=== PATIENT | male | born 1990 | race Caucasian/White ===

== ENCOUNTER 2017-02-23 12:14 | Emergency (ER) | payer OTHER ==
--- NOTE | 2017-02-23 13:08 | EDPHY ---
H & P Stated Complaint: M-1 hold, anxiety Time Seen by Provider: 02/23/17 12:39 HPI/ROS: HISTORY OF PRESENT ILLNESS: This is a 26-year-old male brought in by his therapist Eleazar Ramirez for M1 hold psychiatric evaluation. [facility] stated that patient had taken over 1000 mg of DXM on Sunday, at that point time his behavior became erratic. Patient then seen by therapy on Sunday was placed on Haldol and other antipsychotic drugs patient's behavior became worse erratic behavior increased. In today worsening melyssa symptoms unable to hold a single conversation goes on a tangent. Patient jumping from several different conversations he states he just feels like something is wrong , he definitely reports no suicidal ideation or homicidal ideation REVIEW OF SYSTEMS: Constitutional: No fever Eyes: No vision changes ENT: No sore throat Respiratory: No shortness of breath Cardiac: No chest pain Gastrointestinal: No nausea vomiting Musculoskeletal: Body pain Skin: No rash Neurological: No headache Source: Patient, Family, Old records, Other ([facility]) - Personal History Current Tetanus Diphtheria and Acellular Pertussis (TDAP): Unsure - Medical/Surgical History Hx Asthma: No Hx Chronic Respiratory Disease: No Hx Diabetes: No Hx Cardiac Disease: No Hx Renal Disease: No Hx Cirrhosis: No Hx Alcoholism: No Hx HIV/AIDS: No Hx Splenectomy or Spleen Trauma: No Other PMH: ADHD, anxiety, OCD, Dystonia - Social History Smoking Status: Current every day smoker - Physical Exam Exam: General Appearance: Alert, no distress. Eyes: Pupils equal and round no pallor or injection. ENT, Mouth: Mucous membranes moist. Respiratory: There are no retractions, lungs are clear to auscultation. Cardiovascular: Regular rate and rhythm. Gastrointestinal: Abdomen is soft and nontender, no masses, bowel sounds normal. Neurological: No focal deficits, word salad, unable to have a focus conversation Skin: Warm and dry, no rashes. Musculoskeletal: Neck is supple nontender. Full range of motion Extremities: symmetrical, full range of motion. Psychiatric: Patient is oriented X 3, agitated not combative. Constitutional: Initial Vital Signs Temperature (C) 36.1 C 02/23/17 12:16 Heart Rate 125 H 02/23/17 12:16 Respiratory Rate 20 02/23/17 12:16 Blood Pressure 178/105 H 02/23/17 12:16 O2 Sat (%) 95 02/23/17 12:16 O2 Delivery Mode Room Air Allergies/Adverse Reactions: Penicillins Allergy (Verified 02/10/16 14:58) Home Medications: Medication Instructions Recorded CLONAZEPAM 02/10/16 Haldol 02/10/16 Remeron 02/10/16 Venlafaxine 25MG (RX) 02/10/16 LORazepam [Ativan 2 mg tab] 2 mg PO TID #24 tablet 02/23/17 Medical Decision Making ED Course/Re-evaluation: U tox, CBC, Chem 7, patient on an M1 hold. Ativan given 1400: Patient medically cleared for EPS 1615: Patient reports feeling agitated 2 mg PO Ativan ordered 1630: EPS with patient at this time for evaluation 1800: Spoke with EPS (Sujatha), after their evaluation they feel safe patient will be okay to go home with mom. We also discussed sending a prescription of Ativan, patient to not take of the antipsychotic medications also discussed with patient not to be doing drugs. 1820: Mother agrees with plan. Discharge home---> stable, discussed discharge instructions Differential Diagnosis: Differential diagnosis considered but not limited to suicide ideation, drug intoxication and homicidal ideation - Data Points Laboratory Results: Laboratory Results 02/23/17 12:35 02/23/17 12:35 02/23/17 02/23/17 02/23/17 12:35 12:35 12:35 WBC 9.03 10^3/uL 10^3/uL (3.80-9.50) RBC 4.85 10^6/uL 10^6/uL (4.40-6.38) Hgb 15.9 g/dL g/dL (13.7-17.5) Hct 42.9 % % (40.0-51.0) MCV 88.5 fL fL (81.5-99.8) MCH 32.8 pg pg (27.9-34.1) MCHC 37.1 g/dL H g/dL (32.4-36.7) RDW 11.8 % % (11.5-15.2) Plt Count 346 10^3/uL 10^3/uL (150-400) MPV 10.4 fL fL (8.7-11.7) Neut % (Auto) 62.6 % % (39.3-74.2) Lymph % (Auto) 26.8 % % (15.0-45.0) [place] % (Auto) 9.2 % % (4.5-13.0) Eos % (Auto) 0.8 % % (0.6-7.6) Baso % (Auto) 0.3 % % (0.3-1.7) Nucleat RBC Rel Count 0.0 % % (0.0-0.2) Absolute Neuts (auto) 5.65 10^3/uL 10^3/uL (1.70-6.50) Absolute Lymphs (auto) 2.42 10^3/uL 10^3/uL (1.00-3.00) Absolute Monos (auto) 0.83 10^3/uL H 10^3/uL (0.30-0.80) Absolute Eos (auto) 0.07 10^3/uL 10^3/uL (0.03-0.40) Absolute Basos (auto) 0.03 10^3/uL 10^3/uL (0.02-0.10) Absolute Nucleated RBC 0.00 10^3/uL 10^3/uL (0-0.01) Immature Gran % 0.3 % % (0.0-1.1) Immature Gran # 0.03 10^3/uL 10^3/uL (0.00-0.10) Sodium 137 mEq/L mEq/L (134-144) Potassium 3.4 mEq/L L mEq/L (3.5-5.2) Chloride 100 mEq/L mEq/L (97-110) Carbon Dioxide 26 mEq/l mEq/l (22-31) Anion Gap 11 mEq/L mEq/L (8-16) BUN 10 mg/dL mg/dL (7-23) Creatinine 0.7 mg/dL mg/dL (0.7-1.3) Estimated GFR > 60 Glucose 103 mg/dL H mg/dL (70-100) Calcium 9.4 mg/dL mg/dL (8.5-10.4) Urine Opiates Screen NEGATIVE (NEGATIVE) Urine Barbiturates NEGATIVE (NEGATIVE) Ur Phencyclidine Scrn NEGATIVE (NEGATIVE) Ur Amphetamine Screen NEGATIVE (NEGATIVE) U Benzodiazepines Scrn NON-NEGATIVE H (NEGATIVE) Urine Cocaine Screen NEGATIVE (NEGATIVE) U Marijuana (THC) Screen NEGATIVE (NEGATIVE) Ethyl Alcohol < 10 mg/dL mg/dL (0-10) Medications Given: Discontinued Medications Lorazepam (Ativan) 1 mg PO EDNOW ONE Stop: 02/23/17 13:23 Last Admin: 02/23/17 13:28 Dose: 1 mg Lorazepam (Ativan) 1 mg PO EDNOW ONE Stop: 02/23/17 15:27 Last Admin: 02/23/17 15:27 Dose: 1 mg Lorazepam (Ativan) 2 mg PO EDNOW ONE Stop: 02/23/17 16:21 Last Admin: 02/23/17 16:20 Dose: 2 mg Departure - Departure Disposition: Home, Routine, Self-Care Clinical Impression: Bipolar disorder with severe melyssa Condition: Good Instructions: Lorazepam (By mouth), Bipolar Disorder (ED) Additional Instructions: 1. Patient has been evaluated by EPS, they feel strongly patient is safe to go home with mother 2. You need to follow-up on Sunday or Sunday with [facility] Joel Ramirez 3. Ativan a prescription of Ativan has been given. We recommend you not using any other medication until he has a re-evaluated by [facility] Referrals: FAHAD SCHULZ [Other] - As per Instructions Prescriptions: LORazepam [Ativan 2 mg tab] 2 mg PO TID #24 tablet
[2017-02-23 13:14] LABS: % IMMATURE GRANULYOCYTES 0.3 % (0.0-1.1); ABSOLUTE IMMATURE GRANULOCYTES 0.03 10^3/uL (0.00-0.10); ADD DIFF? NO; ADD MORPH? NO; ADD SCAN? NO; ATYPICAL LYMPHOCYTE FLAG 0 (0-99); FRAGMENT RBC FLAG 0 (0-99); HEMATOCRIT 42.9 % (40.0-51.0); HEMOGLOBIN 15.9 g/dL (13.7-17.5); LEFT SHIFT FLG 0 (0-99); LIPEMIA HEMOLYSIS FLAG 90 (0-99); MEAN CELL HEMOGLOBIN 32.8 pg (27.9-34.1); MEAN CELL HEMOGLOBIN CONCENTR. 37.1 g/dL (32.4-36.7); MEAN CELL VOLUME 88.5 fL (81.5-99.8); MEAN PLATELET VOLUME 10.4 fL (8.7-11.7); PLATELET CLUMPS FLAG 0 (0-99); PLATELET COUNT 346 10^3/uL (150-400); RED BLOOD CELL COUNT 4.85 10^6/uL (4.40-6.38); RED CELL DISTRIBUTION WIDTH 11.8 % (11.5-15.2)
[2017-02-23] MEDS ORDERED: LORazepam 1 MG TAB PO ONE ×3 (13:22→16:20)
[2017-02-23 13:24] LABS: ANION GAP 11 mEq/L (8-16); CALCIUM 9.4 mg/dL (8.5-10.4); CARBON DIOXIDE 26 mEq/l (22-31); CHLORIDE 100 mEq/L (97-110); CREATININE 0.7 mg/dL (0.7-1.3); ETHANOL SERUM < 10 mg/dL (0-10); GLOMERULAR FILTRATION RATE > 60; GLUCOSE 103 mg/dL (70-100); POTASSIUM 3.4 mEq/L (3.5-5.2); SODIUM 137 mEq/L (134-144)
[2017-02-23] MEDS ORDERED: LORazepam 1 MG TAB ONE (15:53)
[2017-02-23 17:38] VITALS: TEMP 97.9
[2017-02-23] MEDS ORDERED: LORAZEPAM 1 MG PREPACK#4 BTL TAKEHOME ONE (18:15)
[2017-02-23 18:45] VITALS: BP 130/88; PULSE 90; RESP 16; O2SAT 94
== END 2017-02-23 18:42 | disposition home or self-care (01) ==
DX: F31.13 Bipolar disorder, current episode manic without psychotic features, severe (principal); F17.200 Nicotine dependence, unspecified, uncomplicated
CPT/HCPCS: 80305; G0480

== ENCOUNTER 2017-03-05 00:43 | Emergency (ER) | payer OTHER ==
[2017-03-05 00:56] VITALS: RESP 18; O2SAT 96
--- NOTE | 2017-03-05 01:17 | EDPHY ---
H & P Stated Complaint: unstable on current psych meds , denies si hi Time Seen by Provider: 03/05/17 01:00 HPI/ROS: Chief Complaint: Abnormal behavior, psychiatric emergency HPI: 26-year-old male with a history of attention deficit hyperactivity disorder generalized anxiety, major depression and OCD being brought in by his parents because he was telling his mom about the names he has for demons and wanted to "invoke" the demons. Patient had mentioned that the demands have been known to kill people. This concerned mom about the patient's safety. He was recently seen and evaluated here and had his medications changed. 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 He denies use of any substances for the last 2 weeks. He is also complaining of pain all over but does not currently take any medications. Mom believes that these are statements seeking other medications. She is here tonight with concerns about his safety state was that he may and questions regarding his medication and there dosages. ROS: 10 point Review of Systems is negative except as noted in the HPI. PMH: Attention deficit hyperactivity disorder, generalized anxiety disorder, major depression, OCD, insomnia Social History: No smoking, no alcohol, no recreational drug use Family History: non-contributory Physical Exam: Gen: Awake, Alert, No Distress HEENT: Nose: no rhinorrhea Eyes: PERRLA, EOMI Mouth: Moist mucosa Neck: Supple, no JVD Chest: nontender, lungs clear to auscultation Heart: S1, S2 normal, no murmur Abd: Soft, non-tender, no guarding Back: no CVA tenderness, no midline tenderness Ext: no edema, non-tender Skin: no rash Neuro: CN II-XII intact, Sensation grossly intact, Strength 5/5 in bilateral upper and lower extremities - Personal History Current Tetanus/Diphtheria Vaccine: Yes Current Tetanus Diphtheria and Acellular Pertussis (TDAP): Yes - Medical/Surgical History Hx Asthma: No Hx Chronic Respiratory Disease: No Hx Diabetes: No Hx Cardiac Disease: No Hx Renal Disease: No Hx Cirrhosis: No Hx Alcoholism: No Hx HIV/AIDS: No Hx Splenectomy or Spleen Trauma: No Other PMH: ADHD, anxiety, OCD, Dystonia - Social History Smoking Status: Current every day smoker Constitutional: Initial Vital Signs Temperature (C) 35.9 C L 03/05/17 00:50 Heart Rate 99 03/05/17 00:50 Respiratory Rate 18 03/05/17 00:50 Blood Pressure 144/94 H 03/05/17 00:50 O2 Sat (%) 96 03/05/17 00:50 O2 Delivery Mode Room Air Allergies/Adverse Reactions: Penicillins Allergy (Verified 02/10/16 14:58) Home Medications: Medication Instructions Recorded CLONAZEPAM 02/10/16 Haldol 02/10/16 Venlafaxine 25MG (RX) 02/10/16 LORazepam [Ativan 2 mg tab] 2 mg PO TID #24 tablet 02/23/17 Artane 03/05/17 Restoril 15 MG (*) 03/05/17 Medical Decision Making ED Course/Re-evaluation: Patient here was changed in his behavior. Mother with whom he lives is concerned about statements he made about demons. Will medically clear him and ask [facility] protective signal installer helper is to speak with him. 0300 patient has been seen by the mental health protective signal installer helper. Patient is at his baseline. Patient is carole for safety is not gravely disabled was not a danger to himself or others. Mom is comfortable taking him home. Plan will be to discharge with follow-up with his providers at [facility] tomorrow. - Data Points Laboratory Results: Laboratory Results 03/05/17 01:20 03/05/17 01:20 03/05/17 03/05/17 03/05/17 01:40 01:20 01:20 WBC 8.41 10^3/uL 10^3/uL (3.80-9.50) RBC 5.12 10^6/uL 10^6/uL (4.40-6.38) Hgb 17.0 g/dL g/dL (13.7-17.5) Hct 46.5 % % (40.0-51.0) MCV 90.8 fL fL (81.5-99.8) MCH 33.2 pg pg (27.9-34.1) MCHC 36.6 g/dL g/dL (32.4-36.7) RDW 12.1 % % (11.5-15.2) Plt Count 418 10^3/uL H 10^3/uL (150-400) MPV 10.1 fL fL (8.7-11.7) Neut % (Auto) 50.6 % % (39.3-74.2) Lymph % (Auto) 38.0 % % (15.0-45.0) [place] % (Auto) 9.5 % % (4.5-13.0) Eos % (Auto) 1.2 % % (0.6-7.6) Baso % (Auto) 0.5 % % (0.3-1.7) Nucleat RBC Rel Count 0.0 % % (0.0-0.2) Absolute Neuts (auto) 4.25 10^3/uL 10^3/uL (1.70-6.50) Absolute Lymphs (auto) 3.20 10^3/uL H 10^3/uL (1.00-3.00) Absolute Monos (auto) 0.80 10^3/uL 10^3/uL (0.30-0.80) Absolute Eos (auto) 0.10 10^3/uL 10^3/uL (0.03-0.40) Absolute Basos (auto) 0.04 10^3/uL 10^3/uL (0.02-0.10) Absolute Nucleated RBC 0.00 10^3/uL 10^3/uL (0-0.01) Immature Gran % 0.2 % % (0.0-1.1) Immature Gran # 0.02 10^3/uL 10^3/uL (0.00-0.10) Sodium 141 mEq/L mEq/L (134-144) Potassium 4.1 mEq/L mEq/L (3.5-5.2) Chloride 108 mEq/L mEq/L (97-110) Carbon Dioxide 22 mEq/l mEq/l (22-31) Anion Gap 11 mEq/L mEq/L (8-16) BUN 8 mg/dL mg/dL (7-23) Creatinine 0.6 mg/dL L mg/dL (0.7-1.3) Estimated GFR > 60 Glucose 91 mg/dL mg/dL (70-100) Calcium 9.8 mg/dL mg/dL (8.5-10.4) Urine Opiates Screen NEGATIVE (NEGATIVE) Urine Barbiturates NEGATIVE (NEGATIVE) Ur Phencyclidine Scrn NEGATIVE (NEGATIVE) Ur Amphetamine Screen NEGATIVE (NEGATIVE) U Benzodiazepines Scrn NON-NEGATIVE H (NEGATIVE) Urine Cocaine Screen NEGATIVE (NEGATIVE) U Marijuana (THC) Screen NEGATIVE (NEGATIVE) Ethyl Alcohol < 10 mg/dL mg/dL (0-10) Departure - Departure Disposition: Home, Routine, Self-Care Clinical Impression: Depression Condition: Good Instructions: Depression (ED) Additional Instructions: Follow up with your providers at [facility]. Referrals: FAHAD SCHULZ [Primary Care Provider] - As per Instructions
[2017-03-05 01:26] LABS: % IMMATURE GRANULYOCYTES 0.2 % (0.0-1.1); ABSOLUTE IMMATURE GRANULOCYTES 0.02 10^3/uL (0.00-0.10); ADD DIFF? NO; ADD MORPH? NO; ADD SCAN? NO; ATYPICAL LYMPHOCYTE FLAG 0 (0-99); FRAGMENT RBC FLAG 0 (0-99); HEMATOCRIT 46.5 % (40.0-51.0); LEFT SHIFT FLG 0 (0-99); LIPEMIA HEMOLYSIS FLAG 90 (0-99); MEAN CELL HEMOGLOBIN 33.2 pg (27.9-34.1); MEAN CELL HEMOGLOBIN CONCENTR. 36.6 g/dL (32.4-36.7); MEAN CELL VOLUME 90.8 fL (81.5-99.8); MEAN PLATELET VOLUME 10.1 fL (8.7-11.7); PLATELET CLUMPS FLAG 0 (0-99); PLATELET COUNT 418 10^3/uL (150-400); RED BLOOD CELL COUNT 5.12 10^6/uL (4.40-6.38); RED CELL DISTRIBUTION WIDTH 12.1 % (11.5-15.2)
[2017-03-05 01:39] LABS: ANION GAP 11 mEq/L (8-16); CALCIUM 9.8 mg/dL (8.5-10.4); CARBON DIOXIDE 22 mEq/l (22-31); CHLORIDE 108 mEq/L (97-110); CREATININE 0.6 mg/dL (0.7-1.3); ETHANOL SERUM < 10 mg/dL (0-10); GLOMERULAR FILTRATION RATE > 60; GLUCOSE 91 mg/dL (70-100); POTASSIUM 4.1 mEq/L (3.5-5.2); SODIUM 141 mEq/L (134-144)
[2017-03-05 03:13] VITALS: BP 143/104; PULSE 110; TEMP 97.7
== END 2017-03-05 03:12 | disposition home or self-care (01) ==
DX: F32.9 Major depressive disorder, single episode, unspecified (principal); F17.200 Nicotine dependence, unspecified, uncomplicated
CPT/HCPCS: 80305; G0480

== ENCOUNTER 2017-08-07 17:32 | Emergency (ER) | payer OTHER, MEDICAID ==
--- NOTE | 2017-08-07 17:49 | EDPHY ---
HPI/HX/ROS/PE/MDM Narrative: CHIEF COMPLAINT: Altered mental status, possible medication overdose HPI: The patient is a 27-year-old male with a mental health history that includes OCD and some psychotic behavior. The patient is currently in work release program. At some point this afternoon, the patient admits to taking extra doses of his haloperidol and Artane. He was returned to the senior care by his father, and was found to be acting very bizarrely, reaching at things that were not there and falling asleep in being difficult to arouse. He was brought to the emergency department by police officers. Patient denies other ingestion. REVIEW OF SYSTEMS: Aside from elements discussed in the HPI, a comprehensive 10-point review of systems was reviewed and is negative. PMH: Includes OCD, psychosis, history of overdose. SOCIAL HISTORY: The in work release program. Admits to prescription drug abuse. PHYSICAL EXAM: General:Patient is alert, in no acute distress. ENT:Eyes are normal to inspection. Pupils are extremely dilated bilaterally but reactive. Neck: Normal inspection. Full range of motion. Respiratory:No respiratory distress. Breath sounds normal bilaterally. Cardiovascular: Regular rate and rhythm. Strong peripheral pulses. Normal cap refill. Abdomen:The abdomen is nontender to palpation. There are no peritoneal signs. There are normal bowel sounds. Back: Normal to inspection. No tenderness to palpation. Skin: Normal color. No rash. Warm and dry. Extremities: Normal appearance. Full range of motion. Neuro: Oriented x3. Normal motor function. Normal sensory function. Psychiatric: Odd affect, denies suicidal ideation. ED Course: 7:30 p.m.: Patient comfortable, stable. On re-evaluation at 9:00 p.m., patient is stable with relatively normal mental status. Repeat EKG shows that his QTC is narrowing if anything. He is sitting up in bed conversing with police. MDM: This patient presents with what appears to be an intentional overdose of some of his psychiatric medications but not with intent to harm. He was observed in the emergency department for several hours and remains hemodynamically stable with normal labs and a baseline EKG. I think he is safe for discharge back to senior care. - Data Points Laboratory Results: Laboratory Results 08/07/17 17:55 08/07/17 17:55 08/07/17 08/07/17 08/07/17 17:55 17:55 17:55 WBC 5.12 10^3/uL 10^3/uL (3.80-9.50) RBC 4.61 10^6/uL 10^6/uL (4.40-6.38) Hgb 15.3 g/dL g/dL (13.7-17.5) Hct 42.3 % % (40.0-51.0) MCV 91.8 fL fL (81.5-99.8) MCH 33.2 pg pg (27.9-34.1) MCHC 36.2 g/dL g/dL (32.4-36.7) RDW 12.6 % % (11.5-15.2) Plt Count 321 10^3/uL 10^3/uL (150-400) MPV 9.6 fL fL (8.7-11.7) Neut % (Auto) 49.9 % % (39.3-74.2) Lymph % (Auto) 39.3 % % (15.0-45.0) [place] % (Auto) 8.4 % % (4.5-13.0) Eos % (Auto) 2.0 % % (0.6-7.6) Baso % (Auto) 0.4 % % (0.3-1.7) Nucleat RBC Rel Count 0.0 % % (0.0-0.2) Absolute Neuts (auto) 2.56 10^3/uL 10^3/uL (1.70-6.50) Absolute Lymphs (auto) 2.01 10^3/uL 10^3/uL (1.00-3.00) Absolute Monos (auto) 0.43 10^3/uL 10^3/uL (0.30-0.80) Absolute Eos (auto) 0.10 10^3/uL 10^3/uL (0.03-0.40) Absolute Basos (auto) 0.02 10^3/uL 10^3/uL (0.02-0.10) Absolute Nucleated RBC 0.00 10^3/uL 10^3/uL (0-0.01) Immature Gran % 0.0 % % (0.0-1.1) Immature Gran # 0.00 10^3/uL 10^3/uL (0.00-0.10) Sodium 139 mEq/L mEq/L (134-144) Potassium 4.6 mEq/L mEq/L (3.5-5.2) Chloride 101 mEq/L mEq/L (97-110) Carbon Dioxide 24 mEq/l mEq/l (22-31) Anion Gap 14 mEq/L mEq/L (8-16) BUN 4 mg/dL L mg/dL (7-23) Creatinine 0.6 mg/dL L mg/dL (0.7-1.3) Estimated GFR > 60 Glucose 75 mg/dL mg/dL (70-100) Calcium 10.2 mg/dL mg/dL (8.5-10.4) Urine Opiates Screen NEGATIVE (NEGATIVE) Urine Barbiturates NEGATIVE (NEGATIVE) Ur Phencyclidine Scrn NEGATIVE (NEGATIVE) Ur Amphetamine Screen NEGATIVE (NEGATIVE) U Benzodiazepines Scrn NON-NEGATIVE H (NEGATIVE) Urine Cocaine Screen NEGATIVE (NEGATIVE) U Marijuana (THC) Screen NEGATIVE (NEGATIVE) General Time Seen by Provider: 08/07/17 17:37 Initial Vital Signs: Initial Vital Signs Temperature (C) 36.6 C 08/07/17 17:41 Heart Rate 52 L 08/07/17 17:41 Respiratory Rate 17 08/07/17 17:41 Blood Pressure 124/89 H 08/07/17 17:41 O2 Sat (%) 98 08/07/17 17:41 O2 Delivery Mode Room Air Allergies/Adverse Reactions: Penicillins Allergy (Verified 08/07/17 17:37) Home Medications: Medication Instructions Recorded CLONAZEPAM 02/10/16 Haldol 02/10/16 Venlafaxine 25MG (RX) 02/10/16 LORazepam [Ativan 2 mg tab] 2 mg PO TID #24 tablet 02/23/17 Artane 03/05/17 Restoril 15 MG (*) 03/05/17 Clonidine 08/07/17 Effexor 08/07/17 [place] 08/07/17 Haldol 08/07/17 Trilafon 08/07/17 Departure - Departure Disposition: Home, Routine, Self-Care Clinical Impression: Overdose, Altered mental status Condition: Good Instructions: Additional Information Additional Instructions: Medically clear for senior care. Return to the ED for change in mental status, passing out, weakness, chest pain or other concerns. Referrals: NONE *PRIMARY CARE P,. [Primary Care Provider] - As per Instructions
--- NOTE | 2017-08-07 18:02 | CPEKG ---
Heart Rate: 54 RR Interval: 1111 P-R Interval: 120 QRSD Interval: 112 QT Interval: 504 QTC Interval: 478 P [place]: 41 QRS [place]: 13 T Wave [place]: 88 EKG Severity - ABNORMAL ECG - EKG Impression: SINUS RHYTHM EKG Impression: NONSPECIFIC INTRAVENTRICULAR CONDUCTION DELAY Electronically Signed By: Kenn Silver 14-Aug-2017 12:52:41
[2017-08-07 18:05] LABS: ADD DIFF? NO; ADD MORPH? NO; ADD SCAN? NO; ATYPICAL LYMPHOCYTE FLAG 10 (0-99); FRAGMENT RBC FLAG 0 (0-99); HEMATOCRIT 42.3 % (40.0-51.0); HEMOGLOBIN 15.3 g/dL (13.7-17.5); LEFT SHIFT FLG 0 (0-99); LIPEMIA HEMOLYSIS FLAG 90 (0-99); MEAN CELL HEMOGLOBIN 33.2 pg (27.9-34.1); MEAN CELL HEMOGLOBIN CONCENTR. 36.2 g/dL (32.4-36.7); MEAN CELL VOLUME 91.8 fL (81.5-99.8); MEAN PLATELET VOLUME 9.6 fL (8.7-11.7); PLATELET CLUMPS FLAG 10 (0-99); PLATELET COUNT 321 10^3/uL (150-400); RED BLOOD CELL COUNT 4.61 10^6/uL (4.40-6.38); RED CELL DISTRIBUTION WIDTH 12.6 % (11.5-15.2)
[2017-08-07 18:18] LABS: ANION GAP 14 mEq/L (8-16); CALCIUM 10.2 mg/dL (8.5-10.4); CARBON DIOXIDE 24 mEq/l (22-31); CHLORIDE 101 mEq/L (97-110); CREATININE 0.6 mg/dL (0.7-1.3); GLOMERULAR FILTRATION RATE > 60; GLUCOSE 75 mg/dL (70-100); POTASSIUM 4.6 mEq/L (3.5-5.2); SODIUM 139 mEq/L (134-144)
[2017-08-07 20:31] VITALS: O2SAT 99
[2017-08-07 21:03] VITALS: BP 131/85; PULSE 64; RESP 18; TEMP 98.1
--- NOTE | 2017-08-08 09:10 | CPEKG ---
Heart Rate: 52 RR Interval: 1154 P-R Interval: 132 QRSD Interval: 114 QT Interval: 516 QTC Interval: 480 P [place]: 55 QRS [place]: 38 T Wave [place]: 87 EKG Severity - ABNORMAL ECG - EKG Impression: SINUS RHYTHM EKG Impression: NONSPECIFIC INTRAVENTRICULAR CONDUCTION DELAY Electronically Signed By: Candace Rodriguez 09-Aug-2017 06:46:46
== END 2017-08-07 21:42 | disposition home or self-care (01) ==
DX: R41.82 Altered mental status, unspecified (principal); T43.4X1A Poisoning by butyrophenone and thiothixene neuroleptics, accidental (unintentional), initial encounter; T44.3X1A Poisoning by other parasympatholytics [anticholinergics and antimuscarinics] and spasmolytics, accidental (unintentional), initial encounter
CPT/HCPCS: 80305